=== PATIENT | female | born 1950 | race Caucasian/White ===

== ENCOUNTER 2017-03-10 11:15 | Emergency (ER) | payer OTHER ==
[~2017-03-10] VITALS: Ht 157.5 cm; Wt 83.6 kg
[2017-03-10] MEDS ORDERED: HYDR25TA PO (11:20)
[2017-03-10] MEDS ORDERED: PRAV20TA4 PO (11:20)
[2017-03-10] MEDS ORDERED: AMLO-512 PO (11:20)
[2017-03-10] MEDS ORDERED: ASPI81 PO (11:20)
[2017-03-10] MEDS ORDERED: ONDANSETRON HCL 4 MG TABLET PO ONE (12:00)
[2017-03-10] MEDS ORDERED: HYDROCODONE/ACETAMINOPHEN 5-325 MG TABLET PO ONE (12:00)
[2017-03-10 12:48] VITALS: BP 141/74
== END 2017-03-10 13:15 | disposition home or self-care (01) ==
LOC: EMS 11:17
DX: R07.89 Other chest pain (principal); I10 Essential (primary) hypertension; E78.00 Pure hypercholesterolemia, unspecified; Z79.82 Long term (current) use of aspirin; V43.52XA Car driver injured in collision with other type car in traffic accident, initial encounter; Y93.89 Activity, other specified; Y92.481 Parking lot as the place of occurrence of the external cause; Y99.8 Other external cause status
CPT/HCPCS: 71020; 99284; Q0162